=== PATIENT | female | born 1950 | race Caucasian/White ===

== ENCOUNTER → 2017-05-02 | Outpatient (CLI) | payer MEDICARE, OTHER ==
--- NOTE | 2017-05-02 11:43 | RAD ---
Bone densitometry scan, 05/02/2017: History: Osteopenia, ovarian failure The lumbar spine and right hip were examined utilizing DEXA technique. The bone mineral density in the lumbar spine as measured from the L1-L4 levels is 1.14 g/sq cm. This yields a T score of -0.3 which is in the normal range. There are hypertrophic degenerative changes in the mid lumbar spine which are presumably elevating this measurement into the normal range. The lumbar spine T score on the previous exam of 12/04/2012 was - 0.8. The current T score at the L1 level is -2.9. On the previous study the L1 T score was -2.1 The total T score at the right hip is - 2.3. This is compatible with osteopenia and probably more accurately reflects the patient's overall bone mineral density status then the lumbar measurements. The right hip T score on the 12/04/2012 exam was - 2.1. IMPRESSION: Osteopenia at the right hip which has worsened slightly since 2012.
== END | disposition home or self-care (01) ==
LOC: DXRAD 09:50
PROVIDERS: ATTEND Family Medicine
DX: M47.896 Other spondylosis, lumbar region (principal); M85.88 Other specified disorders of bone density and structure, other site; E28.39 Other primary ovarian failure
CPT/HCPCS: 77080